=== PATIENT | female | born 1955 | race Caucasian/White ===

== ENCOUNTER 2017-05-09 21:06 | Emergency (ER) | payer OTHER, MEDICARE ==
[2017-05-09 22:43] LABS: #Eosinphils 0.2 thou/uL (0.0-0.7); #Lymphocytes 1.9 thou/uL (1.20-3.40); #Monocytes 0.6 thou/uL (0.11-0.59); #Neutrophils 4.1 thou/uL (1.40-6.50); %Basophils 0.6 % (0.0-1.0); %Eosinophils 2.2 % (0.0-10.0); %Lymphocytes 27.5 % (21.0-51.0); %Monocytes 8.9 % (0.0-10.0); %Neutrophils 60.8 % (42.0-75.0); Hemoglobin 15.6 g/dL (12.0-16.0); Mean Corpuscular HGB CONC 33.3 g/dL (32.0-36.0); Mean Corpuscular Hemoglobin 30.4 pg (27.0-31.0); Mean Corpuscular Volume 91.4 fl (81.0-99.0); Mean Platelet Volume 7.9 fL (7.4-10.4); Platelet Count 191 thou/uL (130-400); RBC Distribution Width 12.7 % (11.5-14.5); Red Blood Cell (RBC) Count 5.13 mill/uL (4.20-5.40); White Blood Cell (WBC) Count 6.8 thou/uL (4.8-10.8)
--- NOTE | 2017-05-09 22:52 | CT ---
CT HEAD NONCONTRAST 05/09/17 INDICATION: Altered mental status. Confusion. FINDINGS: There are scattered, subtle areas of cerebral parenchymal hypoattenuation, bilaterally. There is no intracranial hemorrhage, mass effect or midline shift. Punctate calcifications at the posterior right cranial fossa is nonspecific. IMPRESSION: 1. Scattered areas of nonspecific hypoattenuation of the cerebral parenchyma bilaterally. This m ay be on the basis of microvascular ischemic disease. 2. No intracranial hemorrhage, mass effect or midline shift. POS: [facility] [place]
[2017-05-09 23:04] LABS: ALT (SGPT) Less than 7 U/L (8-55); AST (SGOT) 14 U/L (5-34); Albumin 3.7 g/dL (3.5-5.0); Alkaline Phosphatase 70 U/L (40-150); Anion Gap 14 mmol/L (10-20); BUN (Urea Nitrogen) 14 mg/dL (9.8-20.1); Bilirubin, Total 1.8 mg/dL (0.2-1.2); CK (CPK) 84 U/L (29-168); Calc. Creatinine Clearance 0 mL/min (70-130); Calcium 9.7 mg/dL (7.8-10.44); Carbon Dioxide 26 mmol/L (22-29); Chloride 102 mmol/L (98-107); Estimated GFR-MDRD 80; Globulin 2.8 g/dL (2.4-3.5); Glucose 87 mg/dL (70-105); Potassium 3.5 mmol/L (3.5-5.1); Protein, Total 6.5 g/dL (6.0-8.3); Sodium 138 mmol/L (136-145)
[2017-05-09 23:08] LABS: CKMB 1.6 ng/mL (0-6.6); Troponin I 0.019 ng/mL (< 0.028)
--- NOTE | 2017-05-12 12:11 | EKG ---
Test Reason : Blood Pressure : / mmHG Vent. Rate : 066 BPM Atrial Rate : 066 BPM P-R Int : 154 ms QRS Dur : 096 ms QT Int : 406 ms P-R-T Axes : 068 -12 018 degrees QTc Int : 425 ms Normal sinus rhythm Possible Left atrial enlargement Left ventricular hypertrophy Abnormal ECG Confirmed by SHAUNNA ROONEY, OMARI ([id number]), video effects editor MENG SANTANA ([id number]) on 05/12/2017 12:10:24 PM Referred By: Confirmed By:OMARI MAZA MD
== END 2017-05-09 23:28 | disposition home or self-care (01) ==
LOC: ERS 21:06
DX: R41.82 Altered mental status, unspecified (principal); I25.10 Atherosclerotic heart disease of native coronary artery without angina pectoris; I10 Essential (primary) hypertension; E78.00 Pure hypercholesterolemia, unspecified
CPT/HCPCS: 36415; 70450; 80053; 82140; 82550; 82553; 84484; 85025; 93005

== ENCOUNTER 2020-09-23 11:13 | Outpatient (CLI) | payer MEDICARE, OTHER | END 2020-09-23 11:14 | disposition home or self-care (01) | LOC: BICRAD 11:13 | PROVIDERS: ATTEND Specialist | DX: M54.9 Dorsalgia, unspecified (principal); M43.17 Spondylolisthesis, lumbosacral region; M43.27 Fusion of spine, lumbosacral region | CPT/HCPCS: 72072; 72100 ==

== ENCOUNTER 2020-10-08 15:22 | Outpatient (CLI) | payer MEDICARE, OTHER | END 2020-10-08 15:23 | disposition home or self-care (01) | LOC: BICCT 15:22 | PROVIDERS: ATTEND Specialist | DX: M54.5 Low back pain (principal); M48.07 Spinal stenosis, lumbosacral region; Z98.890 Other specified postprocedural states | CPT/HCPCS: 72131 ==

== ENCOUNTER 2021-01-05 06:58 | Day surgery (SDC) | payer MEDICARE, OTHER ==
[2021-01-04 15:30] VITALS: BMI 32.5
[2021-01-05 09:19] VITALS: BP 121/70; TEMP 98.1
== END 2021-01-05 09:15 | disposition home or self-care (01) ==
LOC: RAD 06:58
PROVIDERS: ATTEND Neurological Surgery
PROC: B02B1ZZ Computerized Tomography (CT Scan) of Spinal Cord using Low Osmolar Contrast (ICD-10-PCS; principal; 2021-01-05)
DX: M51.27 Other intervertebral disc displacement, lumbosacral region (principal); I70.0 Atherosclerosis of aorta; M25.78 Osteophyte, vertebrae; E27.8 Other specified disorders of adrenal gland; K57.30 Diverticulosis of large intestine without perforation or abscess without bleeding; M48.061 Spinal stenosis, lumbar region without neurogenic claudication; M43.16 Spondylolisthesis, lumbar region; I77.811 Abdominal aortic ectasia; I10 Essential (primary) hypertension; E78.5 Hyperlipidemia, unspecified; F17.200 Nicotine dependence, unspecified, uncomplicated; Z79.82 Long term (current) use of aspirin; Z79.899 Other long term (current) drug therapy; Z88.5 Allergy status to narcotic agent; Z91.018 Allergy to other foods; Z98.1 Arthrodesis status
CPT/HCPCS: 62304; 72132

== ENCOUNTER 2021-02-16 14:06 | Outpatient (CLI) | payer MEDICARE, OTHER ==
[2021-02-17 07:35] LABS: SARS-CoV-2 PCR by NAA Not Detected (NotDetected)
== END 2021-02-16 14:07 | disposition home or self-care (01) ==
LOC: LABBT 14:06
PROVIDERS: ATTEND Neurological Surgery
DX: Z01.818 Encounter for other preprocedural examination (principal); M48.062 Spinal stenosis, lumbar region with neurogenic claudication; Z20.822 Contact with and (suspected) exposure to COVID-19
CPT/HCPCS: 93005; U0003; U0005; 93010

== ENCOUNTER 2021-02-21 07:54 | Observation (INO) | payer MEDICARE, OTHER ==
[2021-02-21 10:06] LABS: #Basophils 0.1 thou/uL (0.0-0.2); #Eosinphils 0.3 thou/uL (0.0-0.7); #Lymphocytes 2.6 thou/uL (1.20-3.40); #Monocytes 0.9 thou/uL (0.11-0.59); #Neutrophils 6.8 thou/uL (1.40-6.50); %Basophils 0.5 % (0.0-1.0); %Eosinophils 2.9 % (0.0-10.0); %Lymphocytes 24.3 % (21.0-51.0); %Monocytes 8.6 % (0.0-10.0); %Neutrophils 63.7 % (42.0-75.0); Hemoglobin 15.2 g/dL (12.0-16.0); Mean Corpuscular HGB CONC 33.7 g/dL (32.0-36.0); Mean Corpuscular Hemoglobin 29.6 pg (27.0-31.0); Mean Corpuscular Volume 87.9 fL (78.0-98.0); Mean Platelet Volume 7.5 fL (7.4-10.4); Platelet Count 269 thou/uL (130-400); RBC Distribution Width 12.3 % (11.5-14.5); Red Blood Cell (RBC) Count 5.12 mill/uL (4.20-5.40); White Blood Cell (WBC) Count 10.6 thou/uL (4.8-10.8)
[2021-02-21 10:17] LABS: Anion Gap 15 mmol/L (10-20); BUN (Urea Nitrogen) 17 mg/dL (9.8-20.1); Calc. Creatinine Clearance 68 mL/min (70-130); Carbon Dioxide 29 mmol/L (23-31); Chloride 92 mmol/L (98-107); Glucose 127 mg/dL (80-115); Potassium 3.1 mmol/L (3.5-5.1); Sodium 133 mmol/L (136-145)
[2021-02-21] MEDS ORDERED: Fentanyl 100 MCG/2 ML VIAL ONE ×3 (11:15→13:42)
[2021-02-21] MEDS ORDERED: PHENYLEPHRINE-NS 100 MCG/ML 10 ML SYRINGE ONE (11:28)
[2021-02-21] MEDS ORDERED: Lidocaine 1% PF 5 ML VIAL ONE (11:28)
[2021-02-21] MEDS ORDERED: PROPOFOL 200 MG/20 ML VIAL ONE (11:28)
[2021-02-21] MEDS ORDERED: Dexamethasone 20 MG/5 ML VIAL ONE (11:28)
[2021-02-21] MEDS ORDERED: Ketorolac Tromethamine 30 MG/ML VIAL ONE (11:28)
[2021-02-21] MEDS ORDERED: Rocuronium Bromide 10 MG/ML (10ML VIAL) ONE (11:28)
[2021-02-21] MEDS ORDERED: Ondansetron PF 4 MG/2 ML Vial ONE (11:28)
[2021-02-21] MEDS ORDERED: Acetaminophen 325 MG TAB PO PRN (13:30)
[2021-02-21] MEDS ORDERED: Promethazine HCl 25 MG/ML VIAL IM PRN (13:30)
[2021-02-21] MEDS ORDERED: Milk Of Magnesia 30 ML UDCUP PO PRN (13:30)
[2021-02-21] MEDS ORDERED: tiZANidine HCl 4 MG TAB PO PRN (13:30)
[2021-02-21] MEDS ORDERED: Ondansetron PF 4 MG/2 ML Vial IM PRN (13:30)
[2021-02-21] MEDS ORDERED: diphenhydrAMINE 25 MG CAP PO PRN (13:30)
[2021-02-21] MEDS ORDERED: Promethazine HCl 12.5 MG SUPP PR PRN (13:30)
[2021-02-21] MEDS ORDERED: diphenhydrAMINE 50 MG/ML VIAL IVP PRN (13:30)
[2021-02-21] MEDS ORDERED: Morphine 2 MG/ML VIAL SLOW IVP PRN (13:30)
[2021-02-21] MEDS ORDERED: Promethazine 25 MG TAB PO PRN (13:30)
[2021-02-21] MEDS ORDERED: Acetaminophen 650 MG Suppository PR PRN (13:30)
[2021-02-21] MEDS ORDERED: Mag-Al 1200 mg/1200 mg/30 ML UDCUP PO PRN (13:30)
[2021-02-21] MEDS ORDERED: Morphine 4 MG/ML VIAL SLOW IVP PRN ×2 (13:30→21:00)
[2021-02-21] MEDS ORDERED: HYDROcodone/Acetaminophen 10/325 mg Tablet PO PRN (13:30)
[2021-02-21] MEDS ORDERED: tiZANidine HCl 4 MG TAB ONE (13:41)
[2021-02-21 15:40] VITALS: BMI 30.9
[2021-02-21] MEDS ORDERED: Ketorolac Tromethamine 30 MG/ML VIAL IVP PRN (17:08)
[2021-02-21] MEDS ORDERED: Sodium Chloride 0.9% 1,000 ML IV SCH (17:15)
[2021-02-21] MEDS: Sodium Chloride 0.9% 1,000 ML IV SCH (17:58)
[2021-02-21] MEDS ORDERED: ceFAZolin Sodium/D5W 2 GM in Premix Bag 1 BAG IVPB SCH (20:00)
[2021-02-21] MEDS: busPIRone HCl 10 MG TAB PO SCH (20:51)
[2021-02-21] MEDS ORDERED: Atorvastatin Calcium 40 MG TAB PO SCH (21:00)
[2021-02-21] MEDS: DULoxetine 30 MG CAP PO SCH (21:05)
[2021-02-21] MEDS: CEFAZOLIN 2 GM, Admixture Fee 1 EACH in Sodium Chloride 0.9% 100 ML IVPB SCH (21:05)
[2021-02-22] MEDS: HYDROcodone/Acetaminophen 10/325 mg Tablet PO PRN ×4 (00:08→12:26)
[2021-02-22] MEDS: CEFAZOLIN 2 GM, Admixture Fee 1 EACH in Sodium Chloride 0.9% 100 ML IVPB SCH (03:52)
[2021-02-22] MEDS: Sodium Chloride 0.9% 1,000 ML IV SCH (04:46)
[2021-02-22 08:23] VITALS: TEMP 97.9
[2021-02-22] MEDS: busPIRone HCl 10 MG TAB PO SCH (08:33)
[2021-02-22] MEDS: DULoxetine 30 MG CAP PO SCH (08:33)
[2021-02-22] MEDS ORDERED: Magnesium Oxide 400 MG TAB PO SCH (09:00)
[2021-02-22] MEDS ORDERED: Doxycycline 100 MG CAP PO SCH (09:00)
[2021-02-22] MEDS ORDERED: Hydrochlorothiazide 25 MG TAB PO SCH (09:00)
[2021-02-22] MEDS ORDERED: NIFEdipine XL 60 MG TAB PO SCH (09:00)
[2021-02-22] MEDS ORDERED: Furosemide 40 MG TAB PO SCH (09:00)
[2021-02-22] MEDS ORDERED: Losartan 25 MG TAB PO SCH (09:00)
[2021-02-22 12:12] VITALS: BP 137/85
== END 2021-02-22 12:35 | disposition home or self-care (01) ==
LOC: SDC 07:54 → SURG A 15:41
PROVIDERS: ADMIT Neurological Surgery; ATTEND Neurological Surgery
PROC: 0QJY0ZZ Inspection of Lower Bone, Open Approach (ICD-10-PCS; principal; 2021-02-21)
PROC: 0SG00K1 Fusion of Lumbar Vertebral Joint with Nonautologous Tissue Substitute, Posterior Approach, Posterior Column, Open Approach (ICD-10-PCS; 2021-02-21)
DX: M47.816 Spondylosis without myelopathy or radiculopathy, lumbar region (principal); M48.062 Spinal stenosis, lumbar region with neurogenic claudication; G89.29 Other chronic pain; I10 Essential (primary) hypertension; E78.5 Hyperlipidemia, unspecified; Z79.899 Other long term (current) drug therapy; Z88.5 Allergy status to narcotic agent; Z91.018 Allergy to other foods
CPT/HCPCS: 20930; 22612; 22830; 76000; 80048; 85025; 97139 ×2; C1713; G0378; J0690; J1100; J1885; J2405; J2704; J3010; J3370; J7050

== ENCOUNTER 2021-03-16 12:22 | Outpatient (CLI) | payer MEDICARE, OTHER | END 2021-03-16 12:23 | disposition home or self-care (01) | LOC: TBSIIMAG 12:22 | PROVIDERS: ATTEND Neurological Surgery | DX: M48.062 Spinal stenosis, lumbar region with neurogenic claudication (principal); M47.816 Spondylosis without myelopathy or radiculopathy, lumbar region; Z98.890 Other specified postprocedural states | CPT/HCPCS: 72100 ==

== ENCOUNTER 2021-12-10 22:29 | Emergency (ER) | payer MEDICARE, OTHER ==
[2021-12-10] MEDS ORDERED: HYDROcodone/Acetaminophen 5/325 mg Tablet ONE (23:28)
== END 2021-12-10 23:39 | disposition home or self-care (01) ==
LOC: ERS 22:29
DX: S32.10XA Unspecified fracture of sacrum, initial encounter for closed fracture (principal); E78.00 Pure hypercholesterolemia, unspecified; I25.10 Atherosclerotic heart disease of native coronary artery without angina pectoris; Z86.73 Personal history of transient ischemic attack (TIA), and cerebral infarction without residual deficits; F17.210 Nicotine dependence, cigarettes, uncomplicated; W18.30XA Fall on same level, unspecified, initial encounter
CPT/HCPCS: 99283

== ENCOUNTER 2023-06-04 14:05 | Outpatient (CLI) | payer MEDICARE, OTHER | END 2023-06-04 14:06 | disposition home or self-care (01) | LOC: BICMAMMO 14:05 | PROVIDERS: ATTEND Specialist | DX: N64.4 Mastodynia (principal); N63.0 Unspecified lump in unspecified breast; Z85.3 Personal history of malignant neoplasm of breast | CPT/HCPCS: 77066; G0279 ==

== ENCOUNTER 2024-03-17 15:49 | Inpatient (IN) | payer MEDICARE, OTHER ==
[~2024-03-17 15:49] MED LIST: Iopamidol-370 76% 500 ML MDV (1 ML CHARGE) ONE
[2024-03-17] MEDS ORDERED: Labetalol HCl 100 MG/20 ML VIAL ONE (16:22)
[2024-03-17] MEDS ORDERED: hydrALAZINE 20 MG/ML VIAL ONE (16:24)
[2024-03-17] MEDS ORDERED: Ipratropium/Albuterol 3 ML NEB ONE (16:25)
[2024-03-17 16:58] LABS: #Basophils 0.09 10x3/uL (0.0-0.2); %Basophils 0.9 % (0.0-1.0); %Eosinophils 3.3 % (0.0-10.0); %Lymphocytes 28.4 % (21.0-51.0); %Monocytes 8.2 % (0.0-10.0); %Neutrophils 58.8 % (42.0-75.0); Hematocrit 48.7 % (36.0-47.0); Hemoglobin 15.4 g/dL (12.0-16.0); Mean Corpuscular HGB CONC 31.6 g/dL (32.0-36.0); Mean Corpuscular Hemoglobin 29.3 pg (27.0-31.0); Mean Corpuscular Volume 92.8 fL (78.0-98.0); Mean Platelet Volume 10.4 fL (7.4-10.4); Platelet Count 262 10x3/uL (130-400); RBC Distribution Width 13.2 % (11.5-14.5); Red Blood Cell (RBC) Count 5.25 mill/uL (4.20-5.40)
[2024-03-17 17:16] LABS: ALT (SGPT) 6 U/L (8-55); AST (SGOT) 14 U/L (5-34); Albumin 3.7 g/dL (3.4-4.8); Alkaline Phosphatase 78 U/L (40-110); Anion Gap 13 mmol/L (10-20); BUN (Urea Nitrogen) 19 mg/dL (9.8-20.1); Bilirubin, Total 0.5 mg/dL (0.2-1.2); Calc. Creatinine Clearance 0 mL/min (70-130); Calcium 9.5 mg/dL (7.8-10.44); Carbon Dioxide 27 mmol/L (23-31); Chloride 105 mmol/L (98-107); Estimated GFR 54; Globulin 3.1 g/dL (2.4-3.5); Glucose 104 mg/dL (80-115); INR-International Normal Ratio 0.9; PTT 30.7 sec (22.9-36.1); Potassium 4.7 mmol/L (3.5-5.1); Protein, Total 6.8 g/dL (5.8-8.1); Prothrombin Time 12.3 sec (12.0-14.7); Sodium 140 mmol/L (136-145)
[2024-03-17 17:20] LABS: Troponin I Less than 0.010 ng/mL (< 0.028)
[2024-03-17] MEDS ORDERED: Ondansetron PF 4 MG/2 ML Vial IVP PRN (21:00)
[2024-03-17] MEDS ORDERED: Ondansetron ODT 4 MG TAB SL PRN (21:00)
[2024-03-17] MEDS ORDERED: Acetaminophen 325 MG TAB PO PRN (21:00)
[2024-03-17 22:32] VITALS: BMI 29.8
[2024-03-17] MEDS: Sodium Chloride 0.9% 1,000 ML IV SCH (23:36)
[2024-03-18] MEDS ORDERED: Nicotine 14 MG PATCH TD PRN (01:17)
[2024-03-18] MEDS ORDERED: Ondansetron PF 4 MG/2 ML Vial IVP PRN (01:17)
[2024-03-18] MEDS ORDERED: Ondansetron ODT 4 MG TAB PO PRN (01:17)
[2024-03-18] MEDS ORDERED: Calcium Carbonate 500 MG ChewTAB PO PRN (01:17)
[2024-03-18] MEDS ORDERED: Acetaminophen 650 MG Suppository PR PRN (01:17)
[2024-03-18] MEDS: Acetaminophen 325 MG TAB PO SCH ×2 (06:10→21:04)
[2024-03-18] MEDS: Famotidine/PF 20 mg/2ml Vial SLOW IVP SCH (09:08)
[2024-03-18] MEDS: Losartan 25 MG TAB PO SCH (09:17)
[2024-03-18] MEDS: Atorvastatin Calcium 40 MG TAB PO SCH (09:17)
[2024-03-18] MEDS: Baclofen 10 MG TAB PO SCH (09:18)
[2024-03-18] MEDS: Ezetimibe 10 MG TAB PO SCH (09:18)
[2024-03-18] MEDS: Lidocaine 4% Patch TD SCH (09:18)
[2024-03-18] MEDS: Famotidine 20 MG TAB PO SCH (09:18)
[2024-03-18 19:40] LABS: Troponin I Less than 0.010 ng/mL (< 0.028)
[2024-03-18 20:25] LABS: Anion Gap 14 mmol/L (10-20); BUN (Urea Nitrogen) 19 mg/dL (9.8-20.1); Calc. Creatinine Clearance 58 mL/min (70-130); Calcium 9.4 mg/dL (7.8-10.44); Carbon Dioxide 24 mmol/L (23-31); Cardiac Risk 6.3 (Less than 4.5); Chloride 107 mmol/L (98-107); Cholesterol 196 mg/dl (< 200 Desired); Estimated GFR 53; Glucose 105 mg/dL (80-115); HDL Cholesterol 31 mg/dL (>60 Neg Risk); LDL Cholesterol, Calculated 100 mg/dL; Potassium 4.2 mmol/L (3.5-5.1); Sodium 141 mmol/L (136-145); Triglycerides 326 mg/dL (Less than 150)
[2024-03-18] MEDS ORDERED: Acetaminophen 325 MG TAB PO PRN (20:26)
[2024-03-18] MEDS: QUEtiapine 100 MG TAB PO SCH (20:28)
[2024-03-18] MEDS: traZODone HCl 50 MG TAB PO SCH (20:28)
[2024-03-18] MEDS: Transdermal Patch Removal TOP SCH (20:33)
[2024-03-18 20:47] LABS: Hemoglobin A1c 5.5 % (4.0-6.0)
[2024-03-18] MEDS: Aspirin 81 mg Enteric Coated Tablet PO SCH (21:05)
[2024-03-18] MEDS: Cyanocobalamin (Vitamin B-12) 1,000 MCG TAB PO SCH (21:05)
[2024-03-18] MEDS: Folic Acid 1 MG TAB PO SCH (21:05)
[2024-03-18] MEDS: Multivit, Therapeutic 1 TAB PO SCH (21:05)
[2024-03-18] MEDS: hydrALAZINE 20 MG/ML VIAL SLOW IVP PRN (21:16)
[2024-03-18 22:45] LABS: #Basophils 0.04 10x3/uL (0.0-0.2); %Basophils 0.6 % (0.0-1.0); %Eosinophils 4.4 % (0.0-10.0); %Monocytes 9.6 % (0.0-10.0); %Neutrophils 55.2 % (42.0-75.0); Hematocrit 45.4 % (36.0-47.0); Hemoglobin 14.8 g/dL (12.0-16.0); Mean Corpuscular HGB CONC 32.6 g/dL (32.0-36.0); Mean Corpuscular Hemoglobin 29.3 pg (27.0-31.0); Mean Corpuscular Volume 89.9 fL (78.0-98.0); Platelet Count 210 10x3/uL (130-400); RBC Distribution Width 13.2 % (11.5-14.5); Red Blood Cell (RBC) Count 5.05 mill/uL (4.20-5.40)
[2024-03-18 23:11] LABS: Magnesium 2.1 mg/dL (1.6-2.6)
[2024-03-19 00:06] LABS: Troponin I Less than 0.010 ng/mL (< 0.028)
[2024-03-19] MEDS: Lorazepam 0.5 MG TAB PO PRN (16:05)
[2024-03-19] MEDS: Dextrose 5%-Lactated Ringers 1,000 ML IV SCH (17:14)
[2024-03-19 17:38] LABS: #Basophils 0.05 10x3/uL (0.0-0.2); %Basophils 0.7 % (0.0-1.0); %Eosinophils 4.4 % (0.0-10.0); %Monocytes 8.3 % (0.0-10.0); %Neutrophils 55.1 % (42.0-75.0); Hematocrit 46.3 % (36.0-47.0); Hemoglobin 14.8 g/dL (12.0-16.0); Mean Corpuscular Hemoglobin 29.2 pg (27.0-31.0); Mean Corpuscular Volume 91.3 fL (78.0-98.0); Platelet Count 229 10x3/uL (130-400); RBC Distribution Width 13.3 % (11.5-14.5); Red Blood Cell (RBC) Count 5.07 mill/uL (4.20-5.40)
[2024-03-19 17:57] LABS: Anion Gap 12 mmol/L (10-20); BUN (Urea Nitrogen) 20 mg/dL (9.8-20.1); Calc. Creatinine Clearance 81 mL/min (70-130); Calcium 9.5 mg/dL (7.8-10.44); Carbon Dioxide 24 mmol/L (23-31); Chloride 111 mmol/L (98-107); Estimated GFR 82; Glucose 89 mg/dL (80-115); Potassium 4.3 mmol/L (3.5-5.1); Sodium 143 mmol/L (136-145)
[2024-03-20 04:54] LABS: #Basophils 0.05 10x3/uL (0.0-0.2); %Basophils 0.7 % (0.0-1.0); %Eosinophils 5.4 % (0.0-10.0); %Lymphocytes 30.5 % (21.0-51.0); %Monocytes 9.1 % (0.0-10.0); %Neutrophils 53.9 % (42.0-75.0); Hematocrit 42.7 % (36.0-47.0); Hemoglobin 14.2 g/dL (12.0-16.0); Mean Corpuscular HGB CONC 33.3 g/dL (32.0-36.0); Mean Corpuscular Hemoglobin 29.5 pg (27.0-31.0); Mean Corpuscular Volume 88.6 fL (78.0-98.0); Mean Platelet Volume 10.1 fL (7.4-10.4); Platelet Count 242 10x3/uL (130-400); RBC Distribution Width 13.2 % (11.5-14.5); Red Blood Cell (RBC) Count 4.82 mill/uL (4.20-5.40)
[2024-03-20 05:17] LABS: Anion Gap 14 mmol/L (10-20); BUN (Urea Nitrogen) 19 mg/dL (9.8-20.1); Calc. Creatinine Clearance 85 mL/min (70-130); Calcium 9.3 mg/dL (7.8-10.44); Carbon Dioxide 22 mmol/L (23-31); Chloride 112 mmol/L (98-107); Estimated GFR 87; Glucose 102 mg/dL (80-115); Potassium 3.6 mmol/L (3.5-5.1); Sodium 144 mmol/L (136-145)
[2024-03-20] MEDS: QUEtiapine 25 MG TAB PO SCH (20:14)
[2024-03-20] MEDS: Famotidine 20 MG TAB PO SCH (20:15)
[2024-03-20] MEDS: hydrALAZINE 10 MG TAB PO SCH (20:15)
[2024-03-20] MEDS: Heparin 5,000 UNITS/ML VIAL SC SCH (20:16)
[2024-03-21 12:44] VITALS: BP 138/79; TEMP 97.8
[2024-03-21] MEDS: hydrALAZINE 25 MG TAB PO SCH (13:09)
[2024-03-21] MEDS ORDERED: hydrALAZINE 25 MG TAB PO SCH (15:00)
== END 2024-03-21 14:56 | DRG 61 ==
LOC: ERS 15:49 → CCU 20:44 → 2SE 03-19 00:26
PROVIDERS: ADMIT Student in an Organized Health Care Education/Training Program; ATTEND Internal Medicine
DX: I63.9 Cerebral infarction, unspecified (principal); G93.41 Metabolic encephalopathy; I13.0 Hypertensive heart and chronic kidney disease with heart failure and stage 1 through stage 4 chronic kidney disease, or unspecified chronic kidney disease; I50.32 Chronic diastolic (congestive) heart failure; N17.9 Acute kidney failure, unspecified; I25.10 Atherosclerotic heart disease of native coronary artery without angina pectoris; E78.00 Pure hypercholesterolemia, unspecified; F17.210 Nicotine dependence, cigarettes, uncomplicated; Z96.653 Presence of artificial knee joint, bilateral; R47.81 Slurred speech; R29.707 NIHSS score 7; N18.30 Chronic kidney disease, stage 3 unspecified; Z90.49 Acquired absence of other specified parts of digestive tract; Z88.5 Allergy status to narcotic agent; Z79.02 Long term (current) use of antithrombotics/antiplatelets; Z79.899 Other long term (current) drug therapy; Z90.710 Acquired absence of both cervix and uterus; Z85.3 Personal history of malignant neoplasm of breast; Z86.711 Personal history of pulmonary embolism
CPT/HCPCS: 36415; 36416; 70450; 70496; 70498; 70551; 71045; 80048; 80053; 80061; 83036; 83735; 84484; 85025; 85610; 85730; 93005; 93306; 94640; 94760; 96374; J0360; J1644; J7620; Q9967

== ENCOUNTER 2025-03-27 20:49 | Emergency (ER) | payer MEDICARE, OTHER ==
[2025-03-27 21:32] LABS: #Basophils 0.05 10x3/uL (0.0-0.2); #Eosinophils 0.30 10x3/uL (0.0-0.7); #Monocytes 0.73 10x3/uL (0.11-0.59); #Neutrophils 4.70 10x3/uL (1.40-6.50); %Basophils 0.6 % (0.0-1.0); %Eosinophils 3.8 % (0.0-10.0); %Lymphocytes 26.9 % (21.0-51.0); %Monocytes 9.2 % (0.0-10.0); %Neutrophils 59.0 % (42.0-75.0); Hematocrit 36.8 % (36.0-47.0); Hemoglobin 12.1 g/dL (12.0-16.0); Mean Corpuscular Hemoglobin 29.7 pg (27.0-31.0); Mean Corpuscular Volume 90.2 fL (78.0-98.0); Platelet Count 180 10x3/uL (130-400); Red Blood Cell (RBC) Count 4.08 mill/uL (4.20-5.40); White Blood Cell (WBC) Count 7.96 10x3/uL (4.8-10.8)
[2025-03-27 21:37] LABS: INR-International Normal Ratio 1.2; PTT 32.2 sec (22.9-36.1); Prothrombin Time 14.9 sec (12.0-14.7)
[2025-03-27 21:54] LABS: ALT (SGPT) 11 U/L (Less than 34); AST (SGOT) 17 U/L (11-34); Albumin 3.1 g/dL (3.1-4.5); Alkaline Phosphatase 49 U/L (40-110); Anion Gap 13 mmol/L (10-20); BUN (Urea Nitrogen) 10 mg/dL (9.8-20.1); Bilirubin, Total 0.8 mg/dL (0.3-1.2); Calc. Creatinine Clearance 0 mL/min (70-130); Calcium 8.6 mg/dL (7.8-10.44); Carbon Dioxide 23 mmol/L (23-31); Chloride 108 mmol/L (98-107); Globulin 2.1 g/dL (2.4-3.5); Glucose 117 mg/dL (80-115); Lipase 11 U/L (8-78); Potassium 3.3 mmol/L (3.5-5.1); Sodium 141 mmol/L (136-145)
== END 2025-03-27 22:47 | disposition home or self-care (01) ==
LOC: ERS 20:49
DX: R55 Syncope and collapse (principal); I10 Essential (primary) hypertension; I25.10 Atherosclerotic heart disease of native coronary artery without angina pectoris; E78.00 Pure hypercholesterolemia, unspecified; F17.210 Nicotine dependence, cigarettes, uncomplicated; Z79.899 Other long term (current) drug therapy; Z86.73 Personal history of transient ischemic attack (TIA), and cerebral infarction without residual deficits; Z95.5 Presence of coronary angioplasty implant and graft
CPT/HCPCS: 71045; 80053; 83690; 83880; 84484; 85025; 85610; 85730; 93005; 96360